=== PATIENT | male | born 1995 | race Hispanic/Latino ===

== ENCOUNTER 2018-08-15 09:01 | Observation (INO) | payer BC ==
[2018-08-15 09:04] VITALS: BMI 20.8
[2018-08-15] MEDS ORDERED: Sodium Chloride 0.9% 500 ML IV STA (09:29)
--- NOTE | 2018-08-15 09:32 | ED PDOC ---
HPI: Back Time Seen by Provider: 08/15/18 09:17 Chief Complaint (Nursing): Abdominal Pain Past Medical History Vital Signs: Last Vital Signs Temp 97 F L 08/15/18 09:04 Pulse 65 08/15/18 09:04 Resp 20 08/15/18 09:04 BP 136/79 08/15/18 09:04 Pulse Ox 99 08/15/18 09:04 - Medical History PMH: Asthma - Allergies Allergies/Adverse Reactions: Allergies Allergy/AdvReac Type Severity Reaction Status Date / Time No Known Allergies Allergy Verified 08/15/18 09:18 - ECG O2 Sat by Pulse Oximetry: 99 Disposition - Disposition
--- NOTE | 2018-08-15 09:36 | ED PDOC ---
HPI: Abdomen Time Seen by Provider: 08/15/18 09:17 Chief Complaint (Nursing): Abdominal Pain Chief Complaint (Provider): Abdominal pain History Per: Patient History/Exam Limitations: no limitations Onset/Duration Of Symptoms: Days Current Symptoms Are (Timing): Better Location Of Pain/Discomfort: Epigastric, LUQ Quality Of Discomfort: "Pain" Associated Symptoms: Constipation (now resolved) Additional History Per: Patient Additional Complaint(s): 23yo male, otherwise well, comes to ER reporting left upper abdominal pain, present for the past 4 days. Patient states the pain has been improving, and he was evaluated at [facility] where his bloodwork indicated abnormal values for pancreatic enzymes. Patient was informed to come to the ER for further evaluation. Otherwise, he denies any fever, chills, chest pain, shortness of breath, vomiting or diarrhea. No additional complaints. PMD: [facility] Past Medical History Reviewed: Historical Data, Nursing Documentation, Vital Signs Vital Signs: Last Vital Signs Temp 97 F L 08/15/18 09:04 Pulse 65 08/15/18 09:04 Resp 20 08/15/18 09:04 BP 136/79 08/15/18 09:04 Pulse Ox 99 08/15/18 09:04 - Medical History PMH: Asthma - Surgical History Surgical History: No Surg Hx - Family History Family History: States: No Known Family Hx - Social History Current smoker - smoking cessation education provided: No Alcohol: Other (drinks heavily at times) Drugs: Denies - Allergies Allergies/Adverse Reactions: Allergies Allergy/AdvReac Type Severity Reaction Status Date / Time No Known Allergies Allergy Verified 08/15/18 09:18 Review of Systems ROS Statement: Except As Marked, All Systems Reviewed And Found Negative Constitutional: Negative for: Fever, Chills Cardiovascular: Negative for: Chest Pain Respiratory: Negative for: Shortness of Breath Gastrointestinal: Positive for: Abdominal Pain. Negative for: Nausea, Vomiting, Diarrhea Physical Exam - Reviewed Nursing Documentation Reviewed: Yes Vital Signs Reviewed: Yes - Physical Exam Appears: Positive for: Non-toxic, No Acute Distress Head Exam: Positive for: ATRAUMATIC, NORMAL INSPECTION, NORMOCEPHALIC Skin: Positive for: Warm Eye Exam: Positive for: EOMI, PERRL Neck: Positive for: Normal, Supple Cardiovascular/Chest: Positive for: Regular Rate, Rhythm Respiratory: Positive for: Normal Breath Sounds. Negative for: Wheezing Gastrointestinal/Abdominal: Positive for: Soft, Tenderness (mild epigastric tenderness). Negative for: Mass, Guarding, Rebound Back: Positive for: Normal Inspection. Negative for: L CVA Tenderness, R CVA Tenderness Extremity: Positive for: Normal ROM. Negative for: Pedal Edema Neurological/Psych: Positive for: Awake, Alert, Oriented (x 3) - Laboratory Results Result Diagrams: 08/15/18 08:30 08/15/18 08:30 Lab Results: lipase 986 - ECG O2 Sat by Pulse Oximetry: 99 (RA) Pulse Ox Interpretation: Normal - CT Scan/US ct Other Rad Studies (CT/US): Read By Radiologist Other Rad Interpretation: pancreatitis - Progress ED Course And Treament: 2333: Stable. AAOx3. Pain controlled. Spoke with Jakub for Dr. Howard. Will admit. Medical Decision Making Medical Decision Making: Impression: Abdominal pain, abnormal labs Plan: -- Labs -- CT Abdomen/Pelvis w/ contrast -- toradol 15mg IV -- pepcid 20mg IV -- IV Fluids Scribe Attestation: Documented by Tanesha Scherer acting as a scribe for Felix Damon MD. Provider Attestation: All medical record entries made by the Scribe were at my direction and personally dictated by me. I have reviewed the chart and agree that the record accurately reflects my personal performance of the history, physical exam, medical decision making, and the department course for this patient. I have also personally directed, reviewed, and agree with the discharge instructions and disposition. Disposition - Clinical Impression Clinical Impression: Pancreatitis Counseled Patient/Family Regarding: Studies Performed, Diagnosis - Disposition Disposition Time: 11:34 Condition: STABLE - Pt Status Changed To: Hospital Disposition Of: Observation - POA Present On Arrival: None
[2018-08-15 09:56] LABS: BASO % 0.7 % (0.0-2.0); EOS # 0.2 K/uL (0.0-0.7); EOS % 3.6 % (0.0-4.0); HEMOGLOBIN 14.8 g/dL (12.0-18.0); LYMPH # 1.5 K/uL (1.0-4.3); LYMPH % 34.9 % (20.0-40.0); MEAN CELL VOLUME 95.5 fl (80.0-94.0); MEAN CORPUSCULAR HEMOGLOBIN 32.5 pg (27.0-31.0); MEAN PLATELET VOLUME 7.7 fl (7.2-11.7); MONO # 0.5 K/uL (0.0-0.8); MONO % 11.2 % (0.0-10.0); NEUT # 2.2 K/uL (1.8-7.0); NEUT % 49.6 % (50.0-75.0); NRBC % 0.1 % (0.0-0.0); RBC 4.57 Mil/uL (4.40-5.90); RED CELL DISTRIBUTION WIDTH 12.9 % (11.5-14.5); WHITE BLOOD COUNT 4.4 K/uL (4.8-10.8)
[2018-08-15 09:59] LABS: INR 1.2; PROTHROMBIN TIME 13.1 Seconds (9.8-13.1)
[2018-08-15 10:01] LABS: ALB/GLOB RATIO 1.4 (1.0-2.1); ALBUMIN 4.5 g/dL (3.5-5.0); ALT/SGPT 27 U/L (21-72); AST/SGOT 29 U/L (17-59); BLOOD UREA NITROGEN 16 mg/dl (9-20); GFR NON-AFRICAN AMERICAN > 60
[2018-08-15 10:02] LABS: PARTIAL THROMBOPLASTIN TIME 34.6 Seconds (25.6-37.1)
[2018-08-15] MEDS ORDERED: Iohexol 300 100 ML IJ ONE (10:09)
[2018-08-15] MEDS ORDERED: Sodium Chloride 0.9% 50 ML IV ONE (10:10)
--- NOTE | 2018-08-15 10:56 | CT ---
Date of service: 08/15/2018 PROCEDURE: CT Abdomen and Pelvis with contrast HISTORY: eval for pancreatitis COMPARISON: None. TECHNIQUE: Following the intravenous administration of iodinated contrast material, a CT examination of the abdomen and pelvis was performed from the domes of the diaphragms to the symphysis pubis with reformatted datasets provided in axial, sagittal and coronal planes. Oral contrast was not administered as per referring physician request. Contrast dose: Omnipaque 300, 95 cc Radiation dose: Total exam DLP = 568.34 mGy-cm. This CT exam was performed using one or more of the following dose reduction techniques: Automated exposure control, adjustment of the mA and/or kV according to patient size, and/or use of iterative reconstruction technique. FINDINGS: LOWER THORAX: Unremarkable. LIVER: Unremarkable. No gross lesion or ductal dilatation. GALLBLADDER AND BILE DUCTS: Mildly distended. No radiodense cholelithiasis associated. PANCREAS: Pancreas appears somewhat diffusely prominent without focal lucency identified. Pancreatic duct is not clearly identified and is not dilated. Limited peripancreatic reaction fluid is seen primarily at the mid body through tail. Overall pattern suggests pancreatitis. No pseudocyst related. No definite pattern to suggest pancreatic necrosis at this SPLEEN: Time. ADRENALS: Unremarkable. No mass. KIDNEYS AND URETERS: Unremarkable. No hydronephrosis. No solid mass. VASCULATURE: Unremarkable. No aortic aneurysm. No aortic atherosclerotic calcification or mural plaque present. BOWEL: Unremarkable. No obstruction. No gross mural thickening. APPENDIX: A prominent but retrocecal appendix is felt to present partially filled with gas and hyperdense material. This may represents residual oral contrast from prior CT though no prior CT is on record our institution at this time. PERITONEUM: Limited peritoneal reaction is seen the left pericolic gutter with fluid extending into the pelvis, left greater than right. LYMPH NODES: No prominent lymphadenopathy. BLADDER: Unremarkable. REPRODUCTIVE: Unremarkable. BONES: No acute fracture. OTHER FINDINGS: None. IMPRESSION: 1. CT pattern compatible with clinical suspicion of pancreatitis. Further clinical correlation advised. No pseudocyst, radiodense cholelithiasis or biliary tree dilatation appreciated no pancreatic duct dilatation identified. No obvious pattern to suggest pancreatic necrosis at this time. Limited pararenal and paracolic gutter fluid and reactive change appreciated at the left predominantly with minimal pelvic ascites related. 2. Prominent but retrocecal appendix felt to reflect normal variant. No definite evidence to suggest appendicitis at this time.
[2018-08-15] MEDS ORDERED: Lactated Ringer's 1,000 ML IV ONE (11:45)
[2018-08-15] MEDS ORDERED: Albuterol HFA 90 mcg/actuation (8 g) IH PRN (11:45)
[2018-08-15 13:56] VITALS: RESP 20
[2018-08-15] MEDS: Lactated Ringer's 1,000 ML IV SCH (16:41)
[2018-08-16 06:47] LABS: BASO % 1.1 % (0.0-2.0); EOS # 0.2 K/uL (0.0-0.7); EOS % 3.7 % (0.0-4.0); HEMOGLOBIN 13.7 g/dL (12.0-18.0); LYMPH % 46.2 % (20.0-40.0); MEAN CELL VOLUME 97.1 fl (80.0-94.0); MEAN CORPUSCULAR HEMOGLOBIN 32.3 pg (27.0-31.0); MEAN CORPUSCULAR HGB CONC 33.2 g/dL (33.0-37.0); MEAN PLATELET VOLUME 7.9 fl (7.2-11.7); MONO # 0.5 K/uL (0.0-0.8); MONO % 10.7 % (0.0-10.0); NEUT # 1.6 K/uL (1.8-7.0); NEUT % 38.3 % (50.0-75.0); RBC 4.24 Mil/uL (4.40-5.90); RED CELL DISTRIBUTION WIDTH 12.4 % (11.5-14.5); WHITE BLOOD COUNT 4.2 K/uL (4.8-10.8)
[2018-08-16 06:53] LABS: ALB/GLOB RATIO 1.3 (1.0-2.1); ALBUMIN 3.8 g/dL (3.5-5.0); ALT/SGPT 28 U/L (21-72); AMYLASE 226 U/L (30-110); AST/SGOT 29 U/L (17-59); BLOOD UREA NITROGEN 13 mg/dl (9-20); CALCIUM 9.5 mg/dL (8.4-10.2); GFR NON-AFRICAN AMERICAN > 60; LIPASE 954 U/L (23-300)
[2018-08-16] MEDS: Lactated Ringer's 1,000 ML IV SCH (08:03)
--- NOTE | 2018-08-16 09:02 | CP.PCM.HP ---
History of Present Illness - History of Present Illness History of Present Illness: pt admited for pancreatitis, admits to drinkin 1-2 drinks often, heavy drinking intermittent. no pain at present. no f/c, n/v/d at present. lesley liquids. bw nad imaging noted. gi consult pending case d/c w/ dr lopez Present on Admission - Present on Admission Any Indicators Present on Admission: No Review of Systems - Gastrointestinal Gastrointestinal: As Per HPI, Abdominal Pain Past Patient History - Past Medical History & Family History Past Medical History?: Yes - Past Social History Smoking Status: Never Smoked - CARDIAC Hx Cardiac Disorders: No - PULMONARY Hx Respiratory Disorders: Yes (exercise asthma) - NEUROLOGICAL Hx Neurological Disorder: No - MUSCULOSKELETAL/RHEUMATOLOGICAL Hx Falls: No - PSYCHIATRIC Hx Substance Use: No - SURGICAL HISTORY Hx Surgeries: Yes Hx Tonsillectomy: Yes - ANESTHESIA Hx Anesthesia: Yes Hx Anesthesia Reactions: No Meds Allergies/Adverse Reactions: Allergies Allergy/AdvReac Type Severity Reaction Status Date / Time No Known Allergies Allergy Verified 08/15/18 14:07 Physical Exam - Constitutional Appears: Well, Non-toxic, No Acute Distress - Head Exam Head Exam: ATRAUMATIC, NORMAL INSPECTION, NORMOCEPHALIC - Eye Exam Eye Exam: EOMI, Normal appearance, PERRL Pupil Exam: NORMAL ACCOMODATION, PERRL - ENT Exam ENT Exam: Mucous Membranes Moist, Normal Exam - Neck Exam Neck exam: Positive for: Normal Inspection - Respiratory Exam Respiratory Exam: Clear to Auscultation Bilateral, NORMAL BREATHING PATTERN - Cardiovascular Exam Cardiovascular Exam: REGULAR RHYTHM, RRR, +S1, +S2 - GI/Abdominal Exam GI & Abdominal Exam: Normal Bowel Sounds, Soft. absent: Tenderness - Exam Bimanual exam: NORMAL BIMANUAL EXAM - Extremities Exam Extremities exam: Positive for: full ROM, normal capillary refill, normal inspection, pedal pulses present - Back Exam Back exam: NORMAL INSPECTION - Neurological Exam Neurological exam: Alert, CN II-XII Intact, Normal Gait, Oriented x3, Reflexes Normal - Psychiatric Exam Psychiatric exam: Normal Affect, Normal Mood - Skin Skin Exam: Dry, Intact, Normal Color, Warm Results - Vital Signs Recent Vital Signs: Last Vital Signs Temp 97.6 F 08/16/18 06:00 Pulse 53 L 08/16/18 06:00 Resp 20 08/16/18 06:00 BP 110/64 08/16/18 06:00 Pulse Ox 100 08/16/18 06:00 - Labs Result Diagrams: 08/16/18 05:15 08/16/18 05:15 Labs: Laboratory Results - last 24 hr 08/15/18 08/15/18 08/15/18 08:30 08:30 08:30 WBC 4.4 L RBC 4.57 Hgb 14.8 Hct 43.6 MCV 95.5 H MCH 32.5 H MCHC 34.0 RDW 12.9 Plt Count 191 MPV 7.7 Neut % (Auto) 49.6 L Lymph % (Auto) 34.9 [place] % (Auto) 11.2 H Eos % (Auto) 3.6 Baso % (Auto) 0.7 Neut # (Auto) 2.2 Lymph # (Auto) 1.5 [place] # (Auto) 0.5 Eos # (Auto) 0.2 Baso # (Auto) 0.0 PT 13.1 INR 1.2 APTT 34.6 Sodium 141 Potassium 4.4 Chloride 101 Carbon Dioxide 31 H Anion Gap 13 BUN 16 Creatinine 0.7 L Est GFR ( Amer) > 60 Est GFR (Non-Af Amer) > 60 Random Glucose 87 Calcium 10.0 Phosphorus Magnesium Total Bilirubin 0.8 AST 29 ALT 27 Alkaline Phosphatase 54 Troponin I < 0.0120 Total Protein 7.8 Albumin 4.5 Globulin 3.3 Albumin/Globulin Ratio 1.4 Amylase Lipase 08/15/18 08/16/18 08/16/18 09:00 05:15 05:15 WBC 4.2 L RBC 4.24 L Hgb 13.7 Hct 41.2 MCV 97.1 H MCH 32.3 H MCHC 33.2 RDW 12.4 Plt Count 183 MPV 7.9 Neut % (Auto) 38.3 L Lymph % (Auto) 46.2 H [place] % (Auto) 10.7 H Eos % (Auto) 3.7 Baso % (Auto) 1.1 Neut # (Auto) 1.6 L Lymph # (Auto) 2.0 [place] # (Auto) 0.5 Eos # (Auto) 0.2 Baso # (Auto) 0.0 PT INR APTT Sodium 140 Potassium 4.1 Chloride 102 Carbon Dioxide 32 H Anion Gap 10 BUN 13 Creatinine 0.8 Est GFR ( Amer) > 60 Est GFR (Non-Af Amer) > 60 Random Glucose 81 Calcium 9.5 Phosphorus 4.3 Magnesium 1.9 Total Bilirubin 1.0 AST 29 ALT 28 Alkaline Phosphatase 49 Troponin I Total Protein 6.6 Albumin 3.8 Globulin 2.8 Albumin/Globulin Ratio 1.3 Amylase 226 H Lipase 986 H 954 H Assessment & Plan (1) DVT prophylaxis Assessment and Plan: scd and aeh ose ambulation Status: Acute (2) Pancreatitis Assessment and Plan: pain control npo adv to liquids by GI, cont to adv as tolerated ivf-lr monitor lipase/amylase Status: Acute Decision To Admit - Pt Status Changed To: Hospital Disposition Of: Observation - . Bed Request Type: Med/Surg Admitting Physician: Matthew Howard
[2018-08-16 16:16] VITALS: BP 127/77; PULSE 54; TEMP 98; O2SAT 99
--- NOTE | 2018-08-16 23:33 | CON ---
DATE: 08/16/2018 REFERRING PHYSICIANS: Dr. Ny and Dr. Howard REASON FOR CONSULTATION: Abdominal pain. HISTORY OF PRESENT ILLNESS: This is a pleasant 23-year-old man, social drinker who essentially comes in for abdominal pain and discomfort for the past couple of days. Had a sandwich which causes pain, now it is improving, resolving. Tolerating clear liquid diet and in no apparent distress. PAST MEDICAL HISTORY: As above. PAST SURGICAL HISTORY: As above. MEDICATIONS: Have been reviewed. REVIEW OF SYSTEMS: All other systems have been reviewed and negative apart from the HPI. PHYSICAL EXAMINATION: VITAL SIGNS: Here in the hospital grossly unremarkable. GENERAL: This is a pleasant young man, lying in bed comfortably, in no apparent distress. HEENT: Head: Normocephalic and atraumatic. Eyes: Pupils equally reactive to light bilaterally. No conjunctival pallor or icterus. NECK: Supple. Normal range of motion. No lymphadenopathy appreciated. LUNGS: Coarse breath sounds bilaterally. HEART: S1 and S2. Regular rate and rhythm. No murmur appreciated. ABDOMEN: Soft, nontender. Bowel sounds present. No rebound. No guarding. RECTAL: Deferred. EXTREMITIES: Pulses felt bilaterally. SKIN: Warm, dry, and intact. NEUROLOGIC: A and O x3. LABORATORY DATA: Labs and radiology have been reviewed. WBC is 4.2, hemoglobin is stable at 13.7. Lipase is improving. LFTs are normal. CAT scan shows . ASSESSMENT AND PLAN: This is a 23-year-old male with abdominal pain, unclear etiology. Doing well on diet. Advance diet as tolerated. Discharge planning. Outpatient CAT scan to resolve any pancreatitis. Consider ultrasound and other workups . Thank you for the consult. Maynor Pena MD/ PhD cc: Dr. Anant Howard
--- NOTE | 2018-08-17 09:32 | CP.PCM.DIS ---
Provider - Provider Date of Admission: 08/15/18 11:33 Attending physician: Matthew Howard MD Consults: 08/15/18 11:33 Gastroenterology Consult Stat Comment: Consulting Provider: Maynor Pena Consulting Physician: Maynor Pena Reason for Consult: pancreatitis Time Spent in preparation of Discharge (in minutes): 15 Diagnosis - Discharge Diagnosis (1) DVT prophylaxis Status: Acute (2) Pancreatitis Status: Acute Hospital Course - Lab Results Lab Results: Most Recent Lab Values WBC 4.2 K/uL (4.8-10.8) L 08/16/18 05:15 RBC 4.24 Mil/uL (4.40-5.90) L 08/16/18 05:15 Hgb 13.7 g/dL (12.0-18.0) 08/16/18 05:15 Hct 41.2 % (35.0-51.0) 08/16/18 05:15 MCV 97.1 fl (80.0-94.0) H 08/16/18 05:15 MCH 32.3 pg (27.0-31.0) H 08/16/18 05:15 MCHC 33.2 g/dL (33.0-37.0) 08/16/18 05:15 RDW 12.4 % (11.5-14.5) 08/16/18 05:15 Plt Count 183 K/uL (130-400) 08/16/18 05:15 MPV 7.9 fl (7.2-11.7) 08/16/18 05:15 Neut % (Auto) 38.3 % (50.0-75.0) L 08/16/18 05:15 Lymph % (Auto) 46.2 % (20.0-40.0) H 08/16/18 05:15 [place] % (Auto) 10.7 % (0.0-10.0) H 08/16/18 05:15 Eos % (Auto) 3.7 % (0.0-4.0) 08/16/18 05:15 Baso % (Auto) 1.1 % (0.0-2.0) 08/16/18 05:15 Neut # (Auto) 1.6 K/uL (1.8-7.0) L 08/16/18 05:15 Lymph # (Auto) 2.0 K/uL (1.0-4.3) 08/16/18 05:15 [place] # (Auto) 0.5 K/uL (0.0-0.8) 08/16/18 05:15 Eos # (Auto) 0.2 K/uL (0.0-0.7) 08/16/18 05:15 Baso # (Auto) 0.0 K/uL (0.0-0.2) 08/16/18 05:15 PT 13.1 Seconds (9.8-13.1) 08/15/18 08:30 INR 1.2 08/15/18 08:30 APTT 34.6 Seconds (25.6-37.1) 08/15/18 08:30 Sodium 140 mmol/l (132-148) 08/16/18 05:15 Potassium 4.1 MMOL/L (3.6-5.0) 08/16/18 05:15 Chloride 102 mmol/L (98-107) 08/16/18 05:15 Carbon Dioxide 32 mmol/L (22-30) H 08/16/18 05:15 Anion Gap 10 (10-20) 08/16/18 05:15 BUN 13 mg/dl (9-20) 08/16/18 05:15 Creatinine 0.8 mg/dl (0.8-1.5) 08/16/18 05:15 Est GFR ( Amer) > 60 08/16/18 05:15 Est GFR (Non-Af Amer) > 60 08/16/18 05:15 Random Glucose 81 mg/dL (75-110) 08/16/18 05:15 Calcium 9.5 mg/dL (8.4-10.2) 08/16/18 05:15 Phosphorus 4.3 mg/dl (2.5-4.5) 08/16/18 05:15 Magnesium 1.9 MG/DL (1.6-2.3) 08/16/18 05:15 Total Bilirubin 1.0 mg/dl (0.2-1.3) 08/16/18 05:15 AST 29 U/L (17-59) 08/16/18 05:15 ALT 28 U/L (21-72) 08/16/18 05:15 Alkaline Phosphatase 49 U/L (38-126) 08/16/18 05:15 Troponin I < 0.0120 ng/mL (0.00-0.120) 08/15/18 08:30 Total Protein 6.6 G/DL (6.3-8.2) 08/16/18 05:15 Albumin 3.8 g/dL (3.5-5.0) 08/16/18 05:15 Globulin 2.8 gm/dL (2.2-3.9) 08/16/18 05:15 Albumin/Globulin Ratio 1.3 (1.0-2.1) 08/16/18 05:15 Amylase 226 U/L (30-110) H 08/16/18 05:15 Lipase 954 U/L (23-300) H 08/16/18 05:15 - Hospital Course Hospital Course: pt admitted for pancreatitis. after ivf and pain control doing well, lesley low fat diet. gi cleared for dc. Discharge Exam - Head Exam Head Exam: ATRAUMATIC, NORMAL INSPECTION, NORMOCEPHALIC Discharge Plan - Follow Up Plan Condition: STABLE Disposition: HOME/ ROUTINE Instructions: Pancreatitis (DC) Additional Instructions: Return to ED or primary doctor if symptoms worsen. Follow up with Dr Pena (Certified Phlebotomist) on 08/21/18. [phone] Follow up in primary MD office in [facility]. final dx-pancreatitis doign well, lesley po. cleared by gi for dc. alcohol cessation. bw 1 wk.
== END 2018-08-16 19:30 | disposition home or self-care (01) ==
LOC: H.ER 09:01 → H.ERHOLD 11:33 → H.PEDS 13:03
PROVIDERS: ADMIT Family Medicine; ATTEND Family Medicine
DX: K85.90 Acute pancreatitis without necrosis or infection, unspecified (principal); R10.12 Left upper quadrant pain; F10.10 Alcohol abuse, uncomplicated
CPT/HCPCS: 36415; 74177; 80053; 82150; 83690; 83735; 84100; 84484; 85025; 85610; 85730; 96360; 96361; 96374; 99285; G0378; J1885; J7040; J7120; Q9967